=== PATIENT | male | born 1955 | race Caucasian/White ===

== ENCOUNTER 2017-02-11 17:49 | Observation (INO) | payer SELFPAY ==
[2017-02-11] VITALS (7 sets, daily range): BP systolic 118–155; BP diastolic 59–83; PULSE 91–107; RESP 18–22; TEMP 97.8–99.9; O2SAT 95–98
[~2017-02-11] VITALS: Ht 180.3 cm; Wt 78.0 kg
--- NOTE | 2017-02-11 17:56 | PD ---
Physical Exam Time Seen by Provider: 17:55 Narrative 61 year old male with left sided chest pain, shooting, radiates to Left shoulder. Reports hx of cabg, cva. Associated nausea, diaphoresis. Symptoms started 2 hours ago. vss Seen at triage desk, will receive next available bed. (Marek Gandara) Data Data Last Documented VS Vital Signs Date Time Temp Pulse Resp B/P Pulse Ox O2 Delivery O2 Flow Rate FiO2 02/11/17 18:01 98 Room Air 02/11/17 18:01 18 02/11/17 18:01 107 136/83 155/73 02/11/17 17:51 97.8 (Miriam Cano MD) Orders Electrocardiogram (02/11/17 18:00) Basic Metabolic Panel (Bmp) (02/11/17 18:00) Ckmb (Isoenzyme) Profile (02/11/17 18:00) Complete Blood Count With Diff (02/11/17 18:00) Magnesium (Mg) (02/11/17 18:00) Prothrombin Time / Inr (Pt) (02/11/17 18:00) Act Partial Throm Time (Ptt) (02/11/17 18:00) Troponin I (02/11/17 18:00) Chest, Single Ap (02/11/17 18:00) Ecg Monitoring (02/11/17 18:00) Bilateral Bp Monitoring (02/11/17 18:00) Iv Access Insert/Monitor (02/11/17 18:00) Oximetry (02/11/17 18:00) Oxygen Administration (02/11/17 18:00) Sodium Chloride 0.9% Flush (Ns Flush) (02/11/17 18:00) Aspirin (Aspirin) (02/11/17 18:15) Nitroglycerin Sl (Nitrostat Sl) (02/11/17 18:15) (Miriam Cano MD) [facility] Medical Record Reviewed: Yes Supervised Visit with KEYLA: Yes (Marek Gandara) Supervised Visit with KEYLA: Yes Narrative Course I, Dr. Cano, have reviewed the advance practice practioner's documentation and am in agreement, met with the patient face to face, made the diagnosis, and the medical decision making was done by me. *My assessment and Findings: 61 year male with history of CAD status post CABG and bovine valve repair, unknown which valve 2 years ago here with 2 hours of substernal chest pain radiating down the left arm. Pain is now mild to moderate. He has not found any provocative symptoms. No reproducible tenderness palpation on exam, slightly tachycardic with heart rate in the 90s to 100s, although regular rhythm with occasional PAC on monitor. He does not see a manufacturing engineer machining locally and has not had a provocative testing since his CABG. EKG without any acute ischemic changes. If cardiac enzymes are unremarkable without admit to chest pain center for provocative testing. (Miriam Cano MD) Marek Gandara Feb 11, 2017 17:56 Miriam Cano MD Feb 11, 2017 18:17
[2017-02-11] MEDS ORDERED: SODIUM CHLORIDE 0.9% FLUSH 10 ML FLUSH IVF PRN (18:00)
[2017-02-11] MEDS ORDERED: ASPIRIN 325 MG TAB PO ONE (18:15)
[2017-02-11] MEDS ORDERED: NITROGLYCERIN 0.4 MG SL 25 TABS/BTL SL ONE (18:15)
--- NOTE | 2017-02-11 18:16 | PD ---
HPI Chief Complaint: Chest Pain Time Seen by Provider: 18:12 Travel History International Travel<30 days: No Contact w/Intl Traveler<30days: No Traveled to known affect area: No History of Present Illness HPI 61-year-old male that presents to the ED for evaluation of sharp chest pain for the past 2 hours. Per patient he has had the chest pain for about 2 hours. Per patient he sharp. Per patient he does have a history of heart disease including having a CABG 2 years ago at [place]. Per patient he also has a valve replacement. He denies any discomfort since. He denies any recent travel other than in September when he came from [place] here for work for [employer]. Per patient he no longer smokes. He takes no medications other than aspirin every day. He did not take his aspirin today. Per patient the chest pain is sharp and severe and is 7 out of 10. Per patient agrees to the left arm and gives and shortness of breath with diaphoresis. He has no allergies to medication. She denies any recent injuries. No falls or externus activity. Per patient he was then was sitting and then the pain started. No nausea or vomiting. Patient has not taken anything for this. Patient does not have a doctor or head cd reactor operator in the area. [facility] Past Medical History Cardiovascular Problems: Yes (CABG) Social History Alcohol Use: No Tobacco Use: No Substance Use: No Allergies-Medications (Allergen,Severity, Reaction): Coded Allergies: No Known Allergies (Unverified , 02/11/17) Reported Meds & Prescriptions Reported Meds & Active Scripts Active Review of Systems Except as stated in HPI: all other systems reviewed are Neg Physical Exam Narrative GENERAL: SKIN: Warm and dry. HEAD: Atraumatic. Normocephalic. EYES: Pupils equal and round. No scleral icterus. No injection or drainage. ENT: No nasal bleeding or discharge. Mucous membranes pink and moist. Tongue is midline. No uvula deviation. NECK: Trachea midline. No JVD. CARDIOVASCULAR: Regular rate and rhythm. No murmurs, S3, S4. RESPIRATORY: No accessory muscle use. Clear to auscultation. Breath sounds equal bilaterally. GASTROINTESTINAL: Abdomen soft, non-tender, nondistended. Hepatic and splenic margins not palpable. MUSCULOSKELETAL: Extremities without clubbing, cyanosis, or edema. No obvious deformities. Full range of motion of the upper and lower extremities bilaterally. 2+ pulses bilaterally. NEUROLOGICAL: Awake and alert. No obvious cranial nerve deficits. Motor grossly within normal limits. Five out of 5 muscle strength in the arms and legs. Normal speech. PSYCHIATRIC: Appropriate mood and affect; insight and judgment normal. Data Data Last Documented VS Vital Signs Date Time Temp Pulse Resp B/P Pulse Ox O2 Delivery O2 Flow Rate FiO2 02/11/17 19:00 87 18 98 Room Air 02/11/17 18:31 118/67 02/11/17 17:51 97.8 Orders Electrocardiogram (02/11/17 18:00) Basic Metabolic Panel (Bmp) (02/11/17 18:00) Ckmb (Isoenzyme) Profile (02/11/17 18:00) Complete Blood Count With Diff (02/11/17 18:00) Magnesium (Mg) (02/11/17 18:00) Prothrombin Time / Inr (Pt) (02/11/17 18:00) Act Partial Throm Time (Ptt) (02/11/17 18:00) Troponin I (02/11/17 18:00) Chest, Single Ap (02/11/17 18:00) Ecg Monitoring (02/11/17 18:00) Bilateral Bp Monitoring (02/11/17 18:00) Iv Access Insert/Monitor (02/11/17 18:00) Oximetry (02/11/17 18:00) Oxygen Administration (02/11/17 18:00) Sodium Chloride 0.9% Flush (Ns Flush) (02/11/17 18:00) Aspirin (Aspirin) (02/11/17 18:15) Nitroglycerin Sl (Nitrostat Sl) (02/11/17 18:15) Admit Order (Ed Use Only) (02/11/17 19:27) Activity Bed Rest With Brp (02/11/17 19:28) Vital Signs (Adult) Q4H (02/11/17 19:28) Cardiac Rhythm .As Directed (02/11/17 19:28) Notify Dr: Other .PRN (02/11/17 19:28) Notify . Parameters (02/11/17 19:28) Resp Oxygen Nasal Cannula (02/11/17 ) Ckmb (Isoenzyme) Profile (02/11/17 20:05) Ckmb (Isoenzyme) Profile (02/11/17 23:05) Troponin I (02/11/17 20:05) Troponin I (02/11/17 23:05) Electrocardiogram (02/11/17 20:05) Electrocardiogram (02/11/17 23:05) ^ Obtain (02/11/17 19:28) Sodium Chloride 0.9% Flush (Ns Flush) (02/11/17 19:30) Acetaminophen (Tylenol) (02/11/17 19:30) Sheet Rock Applicator / Telemetry [id number] (02/11/17 19:28) Labs Laboratory Tests Test 02/11/17 18:00 White Blood Count 7.1 TH/MM3 Red Blood Count 4.88 MIL/MM3 Hemoglobin 15.0 GM/DL Hematocrit 43.8 % Mean Corpuscular Volume 89.6 FL Mean Corpuscular Hemoglobin 30.7 PG Mean Corpuscular Hemoglobin 34.3 % Concent Red Cell Distribution Width 13.7 % Platelet Count 164 TH/MM3 Mean Platelet Volume 7.6 FL Neutrophils (%) (Auto) 81.0 % Lymphocytes (%) (Auto) 10.3 % Monocytes (%) (Auto) 8.1 % Eosinophils (%) (Auto) 0.3 % Basophils (%) (Auto) 0.3 % Neutrophils # (Auto) 5.8 TH/MM3 Lymphocytes # (Auto) 0.7 TH/MM3 Monocytes # (Auto) 0.6 TH/MM3 Eosinophils # (Auto) 0.0 TH/MM3 Basophils # (Auto) 0.0 TH/MM3 CBC Comment DIFF FINAL Differential Comment Prothrombin Time 11.5 SEC Prothromb Time International 1.0 RATIO Ratio Activated Partial 30.4 SEC Thromboplast Time Sodium Level 137 MEQ/L Potassium Level 3.7 MEQ/L Chloride Level 105 MEQ/L Carbon Dioxide Level 22.7 MEQ/L Anion Gap 9 MEQ/L Blood Urea Nitrogen 10 MG/DL Creatinine 0.93 MG/DL Estimat Glomerular Filtration 82 ML/MIN Rate Random Glucose 101 MG/DL Calcium Level 8.9 MG/DL Magnesium Level 1.7 MG/DL Total Creatine Kinase 80 U/L Troponin I LESS THAN 0.02 NG/ML MDM Medical Decision Making Medical Screen Exam Complete: Yes Emergency Medical Condition: Yes Medical Record Reviewed: Yes Interpretation(s) EKG shows sinus tachycardia but no sign of acute ischemia or dysrhythmia. Read by me and attending. CK-MB and troponin negative. Last Impressions Chest X-Ray 02/11/17 1800 Signed Impressions: Service Date/Time: Saturday, February 11, 2017 18:19 - CONCLUSION: No acute disease. Elmo French MD CBC & BMP Diagram 02/11/17 18:00 Differential Diagnosis Chest pain versus a typical chest pain versus ACS versus pneumonia versus costochondritis Narrative Course 61-year-old male that presents to the ED for worsening chest pain. Patient was properly examined and was found to have signs and symptoms consistent what appears to be chest pain. Concerning for cardiac. Labs and imaging ordered. Patient was given nitroglycerin and aspirin. Labs and imaging showed no sign of acute disease at this time. Because of patient's risk factors and comorbidities I do recommend admission to the chest pain center. This was discussed with my attending who agrees with this plan. patient is in agreement as well. Patient was admitted to the chest pain center. Diagnosis Primary Impression: Chest pain in adult Admitting Information Admitting Physician Requests: Observation Bryce Pedersen Feb 11, 2017 18:16
[2017-02-11 18:32] LABS: AUTOMATED NEUTROPHIL # 5.8 TH/MM3 (1.8-7.7); BASOPHIL % 0.3 % (0.0-2.0); EOSINOPHIL % 0.3 % (0.0-4.0); HEMATOCRIT 43.8 % (39.0-51.0); HEMO FLAGS DIFF FINAL; LYMPH % 10.3 % (9.0-44.0); LYMPHOCYTE # 0.7 TH/MM3 (1.0-4.8); MEAN CELL VOLUME 89.6 FL (80.0-100.0); MEAN CORPUSCULAR HEMOGLOBIN 30.7 PG (27.0-34.0); MEAN CORPUSCULAR HGB CONC 34.3 % (32.0-36.0); MONO % 8.1 % (0.0-8.0); PLATELET COUNT 164 TH/MM3 (150-450); RED BLOOD COUNT 4.88 MIL/MM3 (4.50-5.90); RED CELL DISTRIBUTION WIDTH 13.7 % (11.6-17.2); WHITE BLOOD COUNT 7.1 TH/MM3 (4.0-11.0)
--- NOTE | 2017-02-11 18:45 | PD ---
Data Data Last Documented VS Vital Signs Date Time Temp Pulse Resp B/P Pulse Ox O2 Delivery O2 Flow Rate FiO2 02/11/17 18:31 102 18 118/67 98 Room Air 02/11/17 17:51 97.8 Orders Electrocardiogram (02/11/17 18:00) Basic Metabolic Panel (Bmp) (02/11/17 18:00) Ckmb (Isoenzyme) Profile (02/11/17 18:00) Complete Blood Count With Diff (02/11/17 18:00) Magnesium (Mg) (02/11/17 18:00) Prothrombin Time / Inr (Pt) (02/11/17 18:00) Act Partial Throm Time (Ptt) (02/11/17 18:00) Troponin I (02/11/17 18:00) Chest, Single Ap (02/11/17 18:00) Ecg Monitoring (02/11/17 18:00) Bilateral Bp Monitoring (02/11/17 18:00) Iv Access Insert/Monitor (02/11/17 18:00) Oximetry (02/11/17 18:00) Oxygen Administration (02/11/17 18:00) Sodium Chloride 0.9% Flush (Ns Flush) (02/11/17 18:00) Aspirin (Aspirin) (02/11/17 18:15) Nitroglycerin Sl (Nitrostat Sl) (02/11/17 18:15) Labs Laboratory Tests Test 02/11/17 18:00 White Blood Count 7.1 TH/MM3 Red Blood Count 4.88 MIL/MM3 Hemoglobin 15.0 GM/DL Hematocrit 43.8 % Mean Corpuscular Volume 89.6 FL Mean Corpuscular Hemoglobin 30.7 PG Mean Corpuscular Hemoglobin 34.3 % Concent Red Cell Distribution Width 13.7 % Platelet Count 164 TH/MM3 Mean Platelet Volume 7.6 FL Neutrophils (%) (Auto) 81.0 % Lymphocytes (%) (Auto) 10.3 % Monocytes (%) (Auto) 8.1 % Eosinophils (%) (Auto) 0.3 % Basophils (%) (Auto) 0.3 % Neutrophils # (Auto) 5.8 TH/MM3 Lymphocytes # (Auto) 0.7 TH/MM3 Monocytes # (Auto) 0.6 TH/MM3 Eosinophils # (Auto) 0.0 TH/MM3 Basophils # (Auto) 0.0 TH/MM3 CBC Comment DIFF FINAL Differential Comment MDM Supervised Visit with KEYLA: Yes Narrative Course I, Dr. Cano, have reviewed the advance practice practioner's documentation and am in agreement, met with the patient face to face, made the diagnosis, and the medical decision making was done by me. *My assessment and Findings: 61-year-old male with history of CABG and unknown bovine valve replacement 2 years ago here with complaint of 2 hours of primarily sharp left-sided chest pain radiating to left arm with some shortness of breath and diaphoresis that has since resolved. No reproducible tenderness to palpation of the chest wall on exam, clear to auscultation with regular rate and rhythm. Patient has not had any provocative testing since his CABG. EKG without ischemic changes, concern for ACS versus atypical chest pain versus musculoskeletal and less likely PE or dissection. We'll obtain cardiac enzymes , chest x-ray and if negative admit to chest pain center for provocative testing. Scripts No Active Prescriptions or Reported Meds Miriam Cano MD Feb 11, 2017 18:45
[2017-02-11 18:46] LABS: APTT (PATIENT) 30.4 SEC (24.3-30.1); PROTHROMBIN TIME - PATIENT 11.5 SEC (9.8-11.6)
--- NOTE | 2017-02-11 18:54 | RADRPT ---
EXAM DATE/TIME: 02/11/2017 18:19 [facility] COMPARISON: No previous studies available for comparison. INDICATIONS : Chest pain today. MEDICAL HISTORY : Stroke. SURGICAL HISTORY : CABG. ENCOUNTER: Initial ACUITY: 1 day PAIN SCORE: 6/10 LOCATION: Bilateral chest FINDINGS: A single view of the chest demonstrates the lungs to be symmetrically aerated without evidence of mas s, infiltrate or effusion. The cardiomediastinal contours are unremarkable. The patient is status po st median sternotomy. There is an artificial heart valve in place. There are overlying electrocardiog ivelisse leads. CONCLUSION: No acute disease. Elmo French MD on February 11, 2017 at 18:51 Board Certified Radiologist. This report was verified electronically.
[2017-02-11 19:02] LABS: ANION GAP 9 MEQ/L (5-15); BICARBONATE 22.7 MEQ/L (21.0-32.0); BLOOD UREA NITROGEN 10 MG/DL (7-18); CHLORIDE 105 MEQ/L (98-107); GLOMERULAR FILTRATION RATE 82 ML/MIN (>89); MAGNESIUM 1.7 MG/DL (1.5-2.5); POTASSIUM 3.7 MEQ/L (3.5-5.1); SODIUM (NA) 137 MEQ/L (136-145)
[2017-02-11 19:06] LABS: CREATINE KINASE 80 U/L (39-308)
[2017-02-11] MEDS ORDERED: SODIUM CHLORIDE 0.9% FLUSH 10 ML FLUSH IV FLUSH PRN (19:30)
[2017-02-11] MEDS ORDERED: ACETAMINOPHEN 500 MG CPLT PO PRN (19:30)
[2017-02-11 21:53] LABS: CREATINE KINASE 73 U/L (39-308)
[2017-02-12 00:05] VITALS: PULSE 90
[2017-02-12 00:54] LABS: CREATINE KINASE 73 U/L (39-308)
[2017-02-12 04:00] VITALS: PULSE 96
[2017-02-12 04:12] VITALS: BP 122/68; PULSE 80; RESP 20; TEMP 99; O2SAT 95
[2017-02-12 07:55] VITALS: BP 116/61; PULSE 76; RESP 14; TEMP 98.6; O2SAT 98
[2017-02-12 08:20] VITALS: PULSE 78
--- NOTE | 2017-02-12 09:09 | HHI.HP ---
HPI Primary Care Physician No Primary Care Physician Chief Complaint Chest pain History of Present Illness This is a 61-year-old male with history of CAD and valve replacement 2 years ago that presents complaining of a central chest discomfort that radiated to his left shoulder. It began yesterday and last 2 hours. He was not short of breath nauseous or diaphoretic with the symptoms. It is different than when he needed his bypass. He states that he had no pain. He states that the time he was admitted to the hospital with a CVA and otherwise really does not remember much of the cardiac issues. He moved here from [place] about 4 months ago and does not have a doctor at this time. He is not on statin therapy, beta shilpa medicine. He takes an aspirin daily. Review of Systems General: Patient denies fevers, chills recent, and recent travel HEENT: Patient denies headache, sore throat, difficulty swallowing. Cardiovascular: Has the chest discomfort as mentioned above. Denies sensation of heart beating rapidly or irregularly. No syncope. Denies diaphoresis. Respiratory: Denies shortness of breath or inspirational chest discomfort. Denies coughing wheezing or hemoptysis. GI: Patient denies nausea, vomiting, diarrhea, abdominal pain, bloody stools. Musculoskeletal: Patient denies joint pain or edema. Denies calf pain or edema. Neurovascular: Patient denies numbness, tingling, weakness in extremities. Denies headache. Endocrine: Denies polyuria and polydipsia. Hematologic: Denies easy bruising. Skin: Denies rash or itching. Past Family Social History Allergies: Coded Allergies: No Known Allergies (Unverified , 02/11/17) Past Medical History Coronary artery disease with a four-vessel bypass 2 years ago. Valvular heart disease with an unknown valve replaced 2 years ago. CVA 2 years ago. Denies hypertension, hyperlipidemia, diabetes. Past Surgical History Valve replacement. Four-vessel bypass. Reported Medications Reported Meds & Active Scripts Active No Active Prescriptions or Reported Medications Active Ordered Medications Current Medications Medications (Trade) Dose Ordered Sig/Gamal Route Start Time Stop Time Status Last Admin (NS Flush) 2 ml UNSCH PRN IVF 02/11/17 18:00 02/11/17 18:14 (NS Flush) 2 ml UNSCH PRN IV FLUSH 02/11/17 19:30 (Tylenol) 500 mg Q4H PRN PO 02/11/17 19:30 Family History There is family history of CAD. Social History Patient quit smoking 40 years ago. Physical Exam Vital Signs Vital Signs Date Time Temp Pulse Resp B/P Pulse Ox O2 Delivery O2 Flow Rate FiO2 02/12/17 07:55 98.6 76 14 116/61 98 02/12/17 04:12 99.0 80 20 122/68 95 02/12/17 04:00 96 02/12/17 00:05 90 02/11/17 23:51 99.9 92 20 118/59 95 02/11/17 21:51 96 02/11/17 21:41 98.3 91 20 135/73 96 02/11/17 20:06 95 02/11/17 19:00 87 18 98 Room Air 02/11/17 18:31 102 18 118/67 98 Room Air 02/11/17 18:19 16 02/11/17 18:01 98 Room Air 02/11/17 18:01 18 98 Room Air 02/11/17 18:01 106 18 98 Room Air 02/11/17 18:01 107 18 136/83 98 Room Air 155/73 02/11/17 17:51 97.8 98 20 146/79 98 Room Air Physical Exam GENERAL: This is a well-nourished, well-developed patient, in no apparent distress. Patient speaks in clear complete sentences. Patient is pleasant. HEENT: Head is atraumatic and normocephalic. Neck is supple without lymphadenopathy and trachea is midline. No JVD or carotid bruits. CARDIOVASCULAR: Regular rate and rhythm without murmurs, gallops, or rubs. RESPIRATORY: Clear to auscultation. Breath sounds equal bilaterally. No wheezes , rales, or rhonchi. Chest wall is nontender. No use of accessory muscles. Well-healed midline scar over the sternum. GASTROINTESTINAL: Abdomen is nontender, nondistended. Abdomen soft. No obvious pulsatile mass or bruit. No CVA tenderness. Strong femoral pulses bilaterally. Normal bowel sounds in all quadrants. MUSCULOSKELETAL: Patient is moving upper and lower extremities freely. No calf tenderness or edema, no Homans sign. Strong pulses in upper and lower extremities. NEUROLOGICAL: Patient is alert and oriented. Cranial nerves 2-12 are grossly intact. No focal deficits and speech is clear. SKIN: No rash and turgor is normal. Laboratory Laboratory Tests Test 02/11/17 02/11/17 02/12/17 18:00 21:00 00:00 White Blood Count 7.1 Red Blood Count 4.88 Hemoglobin 15.0 Hematocrit 43.8 Mean Corpuscular Volume 89.6 Mean Corpuscular Hemoglobin 30.7 Mean Corpuscular Hemoglobin 34.3 Concent Red Cell Distribution Width 13.7 Platelet Count 164 Mean Platelet Volume 7.6 Neutrophils (%) (Auto) 81.0 Lymphocytes (%) (Auto) 10.3 Monocytes (%) (Auto) 8.1 Eosinophils (%) (Auto) 0.3 Basophils (%) (Auto) 0.3 Neutrophils # (Auto) 5.8 Lymphocytes # (Auto) 0.7 Monocytes # (Auto) 0.6 Eosinophils # (Auto) 0.0 Basophils # (Auto) 0.0 CBC Comment DIFF FINAL Differential Comment Prothrombin Time 11.5 Prothromb Time International 1.0 Ratio Activated Partial 30.4 Thromboplast Time Sodium Level 137 Potassium Level 3.7 Chloride Level 105 Carbon Dioxide Level 22.7 Anion Gap 9 Blood Urea Nitrogen 10 Creatinine 0.93 Estimat Glomerular Filtration 82 Rate Random Glucose 101 Calcium Level 8.9 Magnesium Level 1.7 Total Creatine Kinase 80 73 73 Troponin I LESS THAN 0.02 LESS THAN 0.02 LESS THAN 0.02 Result Diagram: 02/11/17 1800 02/11/17 1800 Imaging Last Impressions Chest X-Ray 02/11/17 1800 Signed Impressions: Service Date/Time: Saturday, February 11, 2017 18:19 - CONCLUSION: No acute disease. Elmo French MD Course EKGs have sinus rhythm without significant ST segment depressions or elevations. Assessment and Plan Assessment and Plan * Chest pain: Patient had serial cardiac enzymes and EKGs for ruling out purposes and has been seen by Dr. James Carcamo of cardiology in the chest pain center and will undergo a Julio protocol ETT. He'll be discharged home if the stress test were to be nonischemic with instructions to follow-up with a local doctor and tube builder. He needs to find out he is able take beta shilpa and statin therapy as it should be on these with history of bypass. He will continue his aspirin. * CAD: Patient needs to follow-up with tube builder. Needs discuss medical management for coronary disease as well as valvular heart disease. Patient is stable at this time. He is agreeable to this plan. Brady Gibson Feb 12, 2017 09:09
[2017-02-12] MEDS ORDERED: ASPI81CH37 CHEW (10:02)
--- NOTE | 2017-02-12 10:04 | HHI.DCPOC ---
Discharge Care Plan Diagnosis: (1) Chest pain (2) CAD (coronary artery disease) (3) Hx of CABG Goals to Promote Your Health * To prevent worsening of your condition and complications * To maintain your health at the optimal level Directions to Meet Your Goals Take your medications as prescribed Follow your dietary instruction Follow activity as directed Keep your appointments as scheduled Take your immunizations and boosters as scheduled If your symptoms worsen call your PCP, if no PCP go to Urgent Care Center or Emergency Room Smoking is Dangerous to Your Health. Avoid second hand smoke Call the 24-hour hour crisis hotline for domestic abuse at Brady Gibson Feb 12, 2017 10:04
--- NOTE | 2017-02-12 12:05 | EKG ---
Date Performed: 02/11/2017 Time Performed: 23:58:42 PTAGE: 61 years EKG: Sinus rhythm WITH MARKED SINUS ARRHYTHMIA POSSIBLE LEFT ATRIAL ENLARGEMENT POSSIBLE RIGHT VENTRICULAR CONDUCTION DELAY BORDERLINE ECG PREVIOUS TRACING : 02/11/2017 20.46 Since previous tracing, no significant change noted DOCTOR: James Carcamo Interpretating Date/Time 02/12/2017 11:58:09
--- NOTE | 2017-02-12 12:07 | EKG ---
Date Performed: 02/11/2017 Time Performed: 20:46:18 PTAGE: 61 years EKG: Sinus rhythm WITH SINUS ARRHYTHMIA INDETERMINATE AXIS POSSIBLE RIGHT VENTRICULAR CONDUCTION DELAY BORDERLINE ECG NO PREVIOUS TRACING DOCTOR: James Carcamo Interpretating Date/Time 02/12/2017 12:00:19
--- NOTE | 2017-02-12 12:08 | EKG ---
Date Performed: 02/11/2017 Time Performed: 18:01:52 PTAGE: 61 years EKG: SINUS TACHYCARDIA WITH OCCASIONAL VENTRICULAR PREMATURE COMPLEXES POSSIBLE LEFT ATRIAL ENLA RGEMENT INDETERMINATE AXIS POSSIBLE RIGHT VENTRICULAR CONDUCTION DELAY ABNORMAL RHYTHM ECG NO PREVIOUS TRACING DOCTOR: James Carcamo Interpretating Date/Time 02/12/2017 12:01:54
--- NOTE | 2017-02-12 12:11 | TR ---
Date Performed: 02/12/2017 Time Performed: 08:36:03 DOCTOR: James Carcamo DRUG LIST: CLINICAL HISTORY: CHEST PAIN REASON FOR TEST: REASON FOR ENDING: OBSERVATION: CONCLUSION: RAISSA PROTOCOL. NO CP. TEST STOPPED AFTER REACHING GOAL HR SECONDARY TO SOB AND LEG FATIGUE. OCCASIONAL PVCSMaximum SV=651 % Max HR Achieved=86.0% Maximum OR=552/60 Total Exercise Time= 8:50 COMMENTS: Patient exercised using the Raissa protocol. No electrocardiographic changes were seen to suggest ischemia. Hemodynamic response to exercise was normal. At peak exercise an ectopic atrial was present which resolved in recovery
== END 2017-02-12 11:27 | disposition home or self-care (01) ==
LOC: NEPC 17:49 → NEDA 19:29 → NEPFCDU 21:32
PROVIDERS: ADMIT Internal Medicine Interventional Cardiology; ATTEND Internal Medicine Interventional Cardiology
DX: R07.2 Precordial pain (principal); R06.02 Shortness of breath; I25.10 Atherosclerotic heart disease of native coronary artery without angina pectoris; Z95.1 Presence of aortocoronary bypass graft; Z95.2 Presence of prosthetic heart valve; Z79.82 Long term (current) use of aspirin; Z86.73 Personal history of transient ischemic attack (TIA), and cerebral infarction without residual deficits; Z87.891 Personal history of nicotine dependence
CPT/HCPCS: 71010; 80048; 82550; 83735; 84484; 85025; 85610; 85730; 93005; 93017; 99285; G0378